=== PATIENT | female | born 1950 | race Caucasian/White ===

== ENCOUNTER 2018-05-25 10:51 | Inpatient (IN) | payer OTHER ==
[~2018-05-25] VITALS: Ht 152.4 cm; Wt 113.4 kg
--- NOTE | ~2018-05-25 | CON ---
[facility] [address] [place] [address] CONSULTATION Name: QUYEN LOZANO Room: [address] IN M.R.#: [id number] Admission: 05/25/18 Attend Phys: Kwan Pritchard MD Discharge: Date of : 48 Report #: [id number] THIS REPORT FOR: //name// CC: TRI Pritchard Physician staff DATE OF SERVICE: 05/26/2018 REASON FOR CONSULTATION: I am seeing this patient at the request of Dr. Pritchard for abdominal cellulitis. HISTORY OF PRESENT ILLNESS: This is a 67-year-old woman with a history of morbid obesity. She is visiting from out of town. She has had pain in the left groin beneath her pannus. She has had this for about a week. The pain is sharp, stabbing, "stinging, burning, severe," located in the left lower abdomen. PAST MEDICAL HISTORY: Morbid obesity. PAST SURGICAL HISTORY: She denies any surgery. SOCIAL HISTORY: No tobacco or alcohol use. ALLERGIES: SULFA. MEDICATIONS: She denies home medications. REVIEW OF SYSTEMS: A 12-point review of systems is negative except what is listed above in the HPI. PHYSICAL EXAMINATION: GENERAL: She is awake, alert, in no acute distress. HEENT: Extraocular movements are intact. Sclerae without icterus. NECK: Supple. CARDIOVASCULAR: Regular rate and rhythm. CHEST: Fair movement bilaterally. ABDOMEN: Soft, obese. In the left lower quadrant beneath her pannus, she has an approximately 30 x 30 cm area of maceration. There is some warmth. There is no fluctuance. EXTREMITIES: Without clubbing or cyanosis. NEUROLOGIC: Grossly intact. SKIN: Without rash or jaundice. ASSESSMENT AND PLAN: A 67-year-old woman with abdominal wall cellulitis, sepsis. CT scan was performed and this did not demonstrate any abscess. I think this could be treated with IV antibiotics. [place] [address] CONSULTATION Name: QUYEN LOZANO Room: [address] IN [facility].#: [id number] Admission: 05/25/18 Attend Phys: Kwan Pritchard MD Discharge: Date of : 48 Report #: [id number] care to help the maceration of the skin in the pannus. This will do the most to help this heal. We will follow along with you. Thank you for asking me to take part in the care of this patient. By: [id number] Olivera MD /zaira
[2018-05-25 11:00] VITALS: BP 196/78
[2018-05-25 11:46] LABS: ABSOLUTE LYMPHOCYTES 0.9 thou/uL (0.8-5.3); ABSOLUTE MONOCYTES 1.1 thou/uL (0.0-1.2); ABSOLUTE NEUTROPHILS 6.8 thou/uL (1.6-8.1); BASOPHILS 0.3 %; HEMATOCRIT 41.3 % (37.0-47.0); HEMOGLOBIN 13.9 gm/dL (12.0-15.0); LYMPHOCYTES 10.1 %; MCH 28.4 pg (26.0-34.0); MCHC 33.7 g/dL (28.0-37.0); MCV 84.4 fL (80.0-100.0); MONOCYTES 12.5 %; MPV 8.3 fl. (7.2-11.1); NUCLEATED RBCS 0 /100WBC; PLATELET COUNT* 275 thou/uL (150-400); POLYS 77.1 %; RBC 4.89 mil/uL (4.20-5.00); RDW-CV 14.3 % (10.5-14.5); WBC 8.8 thou/uL (4.0-11.0)
[2018-05-25 11:55] LABS: ANION GAP 11 mmol/L (7-16); BUN 37 mg/dL (7-18); CALCIUM 8.7 mg/dL (8.5-10.1); CHLORIDE 101 mmol/L (98-107); CO2 26 mmol/L (21-32); CREATININE 1.5 mg/dL (0.6-1.3); GLUCOSE 172 mg/dL (70-99); POTASSIUM 3.5 mmol/L (3.5-5.1); SODIUM 138 mmol/L (136-145)
[2018-05-25 12:05] LABS: ALKALINE PHOSPHATASE 87 U/L (46-116); SGOT 80 U/L (15-37); SGPT 85 U/L (30-65); TOTAL BILIRUBIN 0.5 mg/dL (<0.1-1.0); TOTAL PROTEIN 7.6 g/dL (6.4-8.2); TROPONIN-I LEVEL <0.06 ng/mL (<0.06)
[2018-05-25 12:14] LABS: URINE BILIRUBIN NEGATIVE (Negative); URINE BLOOD 2+ (Negative); URINE CLARITY CLEAR; URINE COLOR YELLOW; URINE GLUCOSE-RANDOM NEGATIVE (Negative); URINE KETONES NEGATIVE (Negative); URINE PROTEIN 1+ (Negative); URINE SPECIFIC GRAVITY 1.025 (1.005-1.030)
[2018-05-25 12:15] LABS: URINE LEUKOCYTES-REFLEX 2+ (Negative); URINE NITRITE-REFLEX POSITIVE (Negative)
[2018-05-25 12:20] LABS: SQUAMOUS 0-3 Few /LPF (0-3)
[2018-05-25 12:21] LABS: BACTERIA-REFLEX >30 Many /HPF (None Seen); CASTS None Seen /LPF (None Seen); CRYSTALS None Seen /LPF (None Seen); MUCUS None Seen strn/LPF (None Seen); URINE RBC 3-10 Few /HPF (0-2); URINE WBC-REFLEX >25 Many /HPF (0-5)
--- NOTE | 2018-05-25 14:06 | NUR ---
CANDIDO NOTIFIED UPON PT RETURN FROM CT. PT CONNECTED TO BP MONOITOR SHE WAS PRIOR TO GOING TO CT
[2018-05-25 14:20] VITALS: BP 187/76
--- NOTE | 2018-05-25 14:33 | NUR ---
PATIENT ARRIVED ON UNIT FROM ER AT 1433. COMPLETED ADMISSION ASSESSMENT AND HISTORY. EDUCATED PATIENT ON ROOM, CALL LIGHT, AND FALL RISKS. PATIENT VERBALIZED UNDERSTANDING. CALL LIGHT WITHIN REACH. WILL CONTINUE TO MONITOR.
[2018-05-25 16:00] VITALS: BP 196/69
[2018-05-25 17:47] VITALS: BP 161/54
--- NOTE | 2018-05-25 17:52 | NUR ---
PATIENT REMAINED ALERT AND ORIENTED X'S 4. VITAL SIGNS AND SPO2 STABLE. IV CLEAN, FLUIDS INFUSING. COMPLETED WOUND PICUTRES, IN CHART. PATIENT TOLERATED DIET, NO NAUSEA AND VOMITING. COMPLETED HOURLY ROUNDING. CALL LIGHT WITHIN REACH. WILL CONTINUE TO MONITOR.
[2018-05-25 20:00] VITALS: BP 148/56
[2018-05-25] MEDS ORDERED: OMEPRAZOLE 20 M20 M1 PO (21:33)
[2018-05-26] VITALS: BP 116/40
[2018-05-26 04:00] VITALS: BP 169/68
--- NOTE | 2018-05-26 05:02 | NUR ---
ASSUMED PT CARE AT 1930. ASSESSMENT COMPLETED CHARTED. UP AD CATRACHITO. ABLE TO MAKE NEEDS KNOWN. C/O PAIN TO PANNUS AREA WHEN CLEANING. AREA RED AND EVISCERATED. PT RESTING IN BED AT THIS TIME. WILL CONTINUE TO MONITOR.
[2018-05-26 05:11] LABS: HEMATOCRIT 37.8 % (37.0-47.0); HEMOGLOBIN 12.7 gm/dL (12.0-15.0); MCH 28.7 pg (26.0-34.0); MCHC 33.6 g/dL (28.0-37.0); MCV 85.5 fL (80.0-100.0); MPV 8.6 fl. (7.2-11.1); RBC 4.42 mil/uL (4.20-5.00); RDW-CV 14.7 % (10.5-14.5); WBC 7.5 thou/uL (4.0-11.0)
[2018-05-26 05:44] LABS: ALBUMIN 2.6 g/dL (3.4-5.0); CALCIUM 7.7 mg/dL (8.5-10.1); CREATININE 1.2 mg/dL (0.6-1.3); POTASSIUM 3.4 mmol/L (3.5-5.1); TOTAL BILIRUBIN 0.5 mg/dL (<0.1-1.0); TOTAL PROTEIN 6.1 g/dL (6.4-8.2)
[2018-05-26 08:45] VITALS: BP 162/72
[2018-05-26 12:20] VITALS: BP 132/57
[2018-05-26 16:00] VITALS: BP 160/76
--- NOTE | 2018-05-26 16:12 | NUR ---
PATIENT REMAINED ALERT AND ORIENTED X'S 4. VITAL SIGNS AND SPO2 STABLE. IV CLEAN, FLUIDS INFUSING. TOLERATED DIET, NO NAUSEA AND VOMITING. HAD A BOUT OF DIARRHEA, GAVE IMMODIUM, DIARRHEA SUBSIDED. CLEANED WOUNDS UNDER BREAST AND GROIN AREA AND DRESSED THEM WITH NYSTATIN POWDER AND INTERDRY. PATIENT HAS DENIED PAIN THROUGHOUT SHIFT. COMPLETED HOURLY ROUNDING. CALL LIGHT WITHIN REACH. WILL CONTINUE TO MONITOR.
[2018-05-26 20:00] VITALS: BP 171/64
[2018-05-27] VITALS: BP 162/66
--- NOTE | 2018-05-27 06:28 | NUR ---
Alert and oriented x 4. She is up independently to the bathroom. Lungs sound diminished in lower lobes she has a cough. Intradry dressing applied to lower abdomianl folds. He skin is escoriated and bleeding also nysattin powder is being used it has helped. She has slept well this shift.
[2018-05-27 07:45] VITALS: BP 157/67
--- NOTE | 2018-05-27 11:13 | EKG ---
[place] [address] ELECTROCARDIOGRAM REPORT Name: QUYEN LOZANO Room: [address] ADM IN [facility].#: [id number] Admission: 05/25/18 Attend Phys: wKan Pritchard MD Discharge: Date of : 48 Report #: [id number] THIS REPORT FOR: //name// [facility] ED Test Date: 2018-05-25 Test Time: 11:28:18 Pat Name: QUYEN LOZANO Department: Room: [facility] Gender: F Broadcast Maintenance Technician: Luiz DUTTON : 1950 Requested By: Brianda Lim Order Number: [id number] : Trevor Choudhary Measurements Intervals [place] Rate: 82 P: 36 CA: 163 QRS: -7 QRSD: 106 T: QT: 395 QTc: 462 Interpretive Statements Sinus rhythm Borderline repolarization abnormality No previous ECG available for comparison Electronically Signed On 05-27-2018 11:13:31 CRTS by Trevor Choudhary [email or web address] <ELECTRONICALLY SIGNED> By: Trevor Choudhary MD, [facility] 05/27/18 1113 D: [id number] Trevor Choudhary MD, [facility]ACC /EPI
--- NOTE | 2018-05-27 12:19 | NUR ---
Pt out of room when CM went to assess, will f/u later
[2018-05-27 13:09] LABS: CALCIUM 7.9 mg/dL (8.5-10.1); CREATININE 0.8 mg/dL (0.6-1.3); MAGNESIUM 1.9 mg/dL (1.8-2.4); POTASSIUM 3.4 mmol/L (3.5-5.1)
[2018-05-27 15:43] VITALS: BP 163/73
--- NOTE | 2018-05-27 18:51 | NUR ---
ALERT AND OREINTED X4. UP AD CATRACHITO IN ROOM. IV IS PATENT AND INFUSING ANTIBIOTIC AT THIS TIME. TOLERATING DIET. DENIES NEED FOR PAIN MEDICATION. NAUSEA BEING MANAGED WITH IV NAUSEA MEDICATION. VSS ON ROOM AIR. HOURLY ROUNDS HAVE BEEN MAINTAINED THROUGHOUT SHIFT. CALL LIGHT IS WITHIN REACH. NURSING WILL CONTINUE TO MONITOR.
[2018-05-27 22:07] LABS: GLYCOHEMOGLOBIN (HGB A1C) 6.6 % (4.8-5.6)
[2018-05-28] VITALS: BP 142/69
--- NOTE | 2018-05-28 00:20 | NUR ---
ASSUMED CARE OF PT AT 1900. PT IS A&O X 4 AND ABLE TO VOICE ALL NEEDS. PT DENIES PAIN. PT UP AD CATRACHITO WITH STEADY GAIT. HOURLY ROUNDING FOR SAFETY. REFER TO CHARTING FOR DETAILS. CLWR.
[2018-05-28 04:00] VITALS: BP 133/52
--- NOTE | 2018-05-28 06:19 | NUR ---
PT SLEPT ON AND OFF T/O THIS SHIFT AND REPORTS THAT SHE IS FEELING "MUCH BETTER" TODAY. VSS. NO NEW CONCERNS AT THIS TIME. CLWR
[2018-05-28 06:39] LABS: HEMATOCRIT 37.8 % (37.0-47.0); HEMOGLOBIN 12.4 gm/dL (12.0-15.0); MCH 27.8 pg (26.0-34.0); MCHC 32.9 g/dL (28.0-37.0); MCV 84.6 fL (80.0-100.0); MPV 7.9 fl. (7.2-11.1); RBC 4.47 mil/uL (4.20-5.00); RDW-CV 14.6 % (10.5-14.5); WBC 7.1 thou/uL (4.0-11.0)
[2018-05-28 06:54] LABS: ALBUMIN 2.6 g/dL (3.4-5.0); CALCIUM 8.4 mg/dL (8.5-10.1); MAGNESIUM 1.9 mg/dL (1.8-2.4); POTASSIUM 3.9 mmol/L (3.5-5.1); TOTAL BILIRUBIN 0.6 mg/dL (<0.1-1.0); TOTAL PROTEIN 7.1 g/dL (6.4-8.2)
[2018-05-28 08:00] VITALS: BP 154/77
[2018-05-28 10:00] VITALS: BP 179/70
--- NOTE | 2018-05-28 10:00 | NUR ---
PT ALERT AND ORIENTED. TELE TRACKING NSRAND ALL VSS ON ROOM AIR. DENIES CP, SOA. ABDOMINAL FOLDS WITH INTERDRY DRESSING INTACT. EDUCATED ON SAFETY AND PLAN OF CARE. PLEASE SEE ASSESSMENT FOR ADDITIONAL INFORMATION. PT TO MED SURG AT APPROX 1000, REPORT GIVEN TO AIDEN PEÑA.
--- NOTE | 2018-05-28 11:09 | NUR ---
RECEIVED REPORT FROM ANITA ON TELE AND ASSUMED CARE OF PT @ 1000.PT IS A/O X4,VSS.THIS NURSE ASSESSED PT AND PREVIOUS NURSE CHARTING AND AGREES.IV PATENT AND SALINE LOCKED.IV ANTIBIOTICS GIVEN.ISOLATION MAINTAINED FOR RULE OUT CDIFF.NO C/O PAIN.PT IS CALM AND COOPERATIVE.UP AD CATRACHITO IN ROOM.PT LEFT RESTING IN BED WITH CALL LIGHT WITHIN REACH.WILL CONTINUE TO MONITOR.
--- NOTE | 2018-05-28 13:01 | NUR ---
Nutrition: RD assessed pt d/t high BMI. Pt is admitted with cellulitis of panis, sees wound care. Wt: 250#. Albumin 2.6, prealb 11.7. Regular diet ordered. RD ordered Beneprotien packets for wound healing with all meals. Pt is currently in ISOLATION for R/O c. diff. Mild risk.
--- NOTE | 2018-05-28 14:11 | NUR ---
PT.WALKING IN ROOM. GAIT STEADY. SHE IS UP HERE FROM [place],VISITING HER DAUGHTER AND FAMILY FOR THE HOLIDAYS. SHE FLEW HERE. HAS AN OPEN TICKET SO CAN [place] TO [place]EN SHE WANTS TO. SHE IS INDEPENDENT. NO USE OF DME. SHE SAID HER DAUGHTER AND FAMILY HAS TO WORK TONIGHT AND TOMORROW DAY. SHE SAID SHE WOULD NOT HAVE A RIDE OR HAVE ANYONE TO BE WITH HER AT HOME UNTIL TOMORROW AROUND 4 PM. PASSED ALONG TO NURSE.
[2018-05-28 17:02] VITALS: BP 150/72
--- NOTE | 2018-05-28 17:04 | NUR ---
VSS.PT REMAINS ON ROOM AIR.IV PATENT AND SALINE LOCKED.PT PROGRESSING TOWARDS GOALS.NO C/O PAIN.PT HAS C/O COUGH-TESSALON PEARLS GIVEN.ISOLATION MAINTAINED FOR PENDING CDIFF.PT INFORMED OF PLAN OF CARE AND COMMUNICATES UNDERSTANDING.HOURLY ROUNDING COMPLETED FOR PT SAFETY.CALL LIGHT AND FALL PRECAUTIONS IN PLACE.WILL CONTINUE TO MONITOR FOR DURATION OF SHIFT.
[2018-05-28 20:00] VITALS: BP 118/73
--- NOTE | 2018-05-29 04:44 | NUR ---
PT A&Ox4. UP AD CATRACHITO. IV IN L WRIST PATENT, INFUSING. CELLULITIS SPOTS CLEANED. DENIED PAIN DURING SHIFT. PT ON ISOLATION PRECAUTIONS DUE TO PENDING C-DIFF. PLANS ON DISCHARGING TODAY. HOURLY ROUNDING COMPLETE. CALL LIGHT WITHIN REACH. WILL CONTINUE TO MONITOR.
[2018-05-29 05:11] LABS: HEMATOCRIT 35.3 % (37.0-47.0); HEMOGLOBIN 11.7 gm/dL (12.0-15.0); MCH 27.8 pg (26.0-34.0); MCHC 33.2 g/dL (28.0-37.0); MCV 83.7 fL (80.0-100.0); RBC 4.21 mil/uL (4.20-5.00); RDW-CV 14.2 % (10.5-14.5)
[2018-05-29 05:25] LABS: ALBUMIN 2.3 g/dL (3.4-5.0); CALCIUM 8.2 mg/dL (8.5-10.1); CREATININE 0.8 mg/dL (0.6-1.3); MAGNESIUM 1.8 mg/dL (1.8-2.4); POTASSIUM 3.3 mmol/L (3.5-5.1); TOTAL BILIRUBIN 0.4 mg/dL (<0.1-1.0); TOTAL PROTEIN 6.7 g/dL (6.4-8.2)
[2018-05-29 11:17] VITALS: BP 181/62
[2018-05-29 12:00] VITALS: BP 141/64
[2018-05-29] MEDS ORDERED: METOPROLOL ER-1 EACH PO (15:42)
[2018-05-29] MEDS ORDERED: AUGMENTIN 500-1 EACH PO (15:44)
[2018-05-29] MEDS ORDERED: NORVASC10 MG PO (15:45)
[2018-05-29] MEDS ORDERED: LISINOPRIL5 MG PO (15:46)
[2018-05-29] MEDS ORDERED: NYAMYC15 GM TOP (15:47)
[2018-05-29] MEDS ORDERED: LORATIDINE 10 M10 M1 PO (15:50)
[2018-05-29 15:52] VITALS: BP 141/64
--- NOTE | 2018-05-29 17:11 | NUR ---
PT ALERT AND ORIENTED X 4. IV PATENT. DENIES NAUSEA AND PAIN. PT RECEIVED POTASSIUM AND MAGNESIUM PER ELECTROLYTE PROTOCOL. WOUND AREA CLEANSED PER ORDER AND NYSTATIN POWDER APPLIED. IV REMOVED DUE TO INFILTRATION. PT RECEIVED DISCHARGE INSTRUCTIONS AND PRESCRIPTIONS. PT LEFT UNIT @ 1615 TO LEAVE WITH DAUGHTER PER PRIVATE CAR.
[2018-05-29 17:16] VITALS: BP 141/64
== END 2018-05-29 16:15 | disposition home or self-care (01) | DRG 871 ==
LOC: M.ERS 10:51 → M.TBA-ER 13:33 → M.ERS 13:33 → M.2W 13:49 → M.TBA-ER 13:49 → M.ORTHSURG 13:49 → M.2W 14:25 → M.ORTHSURG 05-28 10:15
PROVIDERS: Family Medicine; Nurse Practitioner Family
DX: A41.9 Sepsis, unspecified organism (principal); E43 Unspecified severe protein-calorie malnutrition; J18.0 Bronchopneumonia, unspecified organism; L03.311 Cellulitis of abdominal wall; N17.9 Acute kidney failure, unspecified; N39.0 Urinary tract infection, site not specified; Z68.42 Body mass index [BMI] 45.0-49.9, adult; R65.20 Severe sepsis without septic shock; E66.01 Morbid (severe) obesity due to excess calories; R73.9 Hyperglycemia, unspecified; E87.6 Hypokalemia; I10 Essential (primary) hypertension; Z23 Encounter for immunization; Z88.2 Allergy status to sulfonamides; Z79.899 Other long term (current) drug therapy

== ENCOUNTER 2021-06-04 12:47 | Emergency (ER) | payer OTHER ==
[~2021-06-04] VITALS: Ht 152.4 cm; Wt 102.1 kg
[~2021-06-04 12:47] MED LIST: AUGMENTIN 500-1 EACH PO; LISINOPRIL5 MG PO; LORATIDINE 10 M10 M1 PO; METOPROLOL ER-1 EACH PO; NORVASC10 MG PO; NYAMYC15 GM TOP; OMEPRAZOLE 20 M20 M1 PO
[2021-06-04] MEDS ORDERED: NEXIUM20 MG PO (13:26)
[2021-06-04 15:02] LABS: URINE BILIRUBIN NEGATIVE (Negative); URINE BLOOD 2+ (Negative); URINE COLOR YELLOW; URINE GLUCOSE-RANDOM NEGATIVE (Negative); URINE KETONES NEGATIVE (Negative); URINE LEUKOCYTES-REFLEX 1+ (Negative); URINE NITRITE-REFLEX NEGATIVE (Negative); URINE PROTEIN 3+ (Negative); URINE SPECIFIC GRAVITY 1.025 (1.005-1.030); URINE UROBILINOGEN 0.2 E.U./dl (0.2-1.0)
[2021-06-04 15:03] LABS: URINE CLARITY CLOUDY
[2021-06-04 15:13] LABS: BACTERIA-REFLEX >30 Many /HPF (None Seen); CASTS None Seen /LPF (None Seen); CRYSTALS None Seen /LPF (None Seen); SQUAMOUS 4-10 Moderate /LPF (0-3); URINE RBC >20 Many /HPF (0-2); URINE WBC-REFLEX >25 Many /HPF (0-5)
[2021-06-04 15:15] LABS: ABSOLUTE BASOPHILS 0.1 thou/uL (0.0-0.2); ABSOLUTE EOSINOPHILS 0.1 thou/uL (0.0-0.7); ABSOLUTE LYMPHOCYTES 1.7 thou/uL (0.8-5.3); ABSOLUTE MONOCYTES 0.6 thou/uL (0.0-1.2); ABSOLUTE NEUTROPHILS 8.4 thou/uL (1.6-8.1); BASOPHILS 0.7 %; EOSINOPHILS 0.6 %; HEMATOCRIT 43.1 % (37.0-47.0); HEMOGLOBIN 14.8 gm/dL (12.0-15.0); LYMPHOCYTES 16.1 %; MCH 28.6 pg (26.0-34.0); MCHC 34.3 g/dL (28.0-37.0); MCV 83.4 fL (80.0-100.0); MONOCYTES 5.4 %; MPV 7.9 fl. (7.2-11.1); NUCLEATED RBCS 0 /100WBC; PLATELET COUNT* 407 thou/uL (150-400); POLYS 77.2 %; RBC 5.17 mil/uL (4.20-5.00); RDW-CV 13.9 % (10.5-14.5); WBC 10.8 thou/uL (4.0-11.0)
--- NOTE | 2021-06-04 15:19 | EKG ---
[place] [address] ELECTROCARDIOGRAM REPORT Name: QUYEN LOZANO Room: [facility]#: [id number] Admission: 06/04/21 Attend Phys: Discharge: Date of : 48 Date of Service: 06/04/21 1458 Report #: [id number] THIS REPORT FOR: //name// [facility] ED Test Date: 2021-06-04 Test Time: 14:58:11 Pat Name: QUYEN LOZANO Department: Room: Gender: F Consulting Senior Practice Director: : 1950 Requested By: Brianda Lim Order Number: [id number] MD: Trevor Choudhary Measurements Intervals [place] Rate: 67 P: 9 GA: 170 QRS: -8 QRSD: 104 T: 40 QT: 547 QTc: 578 Interpretive Statements Sinus rhythm LVH with secondary repolarization abnormality Prolonged QT interval Compared to ECG 05/25/2018 11:28:18 Left ventricular hypertrophy now present Prolonged QT interval now present Electronically Signed On 06-04-2021 15:19:25 GLASS OR MIRROR INSPECTOR by Trevor Choudhary [email or web address] <ELECTRONICALLY SIGNED> By: Trevor Choudhary MD, [facility] 06/04/21 1519 1458 1458 Trevor Choudhary MD, [facility] /EPI
[2021-06-04 15:20] LABS: CALCIUM 8.8 mg/dL (8.5-10.1); POTASSIUM 3.4 mmol/L (3.5-5.1)
[2021-06-04 15:21] LABS: INFLUENZA A ANTIGEN Negative (Negative); INFLUENZA B ANTIGEN Negative (Negative)
[2021-06-04 15:24] LABS: ALBUMIN 3.3 g/dL (3.4-5.0); TOTAL BILIRUBIN 0.7 mg/dL (<0.1-1.0); TOTAL PROTEIN 7.8 g/dL (6.4-8.2)
[2021-06-04] MEDS ORDERED: PHENERGAN 25 MG25 M1 PO (16:26)
[2021-06-04] MEDS ORDERED: CEPHALEXIN500 MG PO (16:30)
[2021-06-04] MEDS ORDERED: NORVASC5 MG PO (16:30)
[2021-06-04 17:03] VITALS: BP 184/65
== END 2021-06-04 17:03 | disposition home or self-care (01) ==
LOC: M.ERS 12:47
PROVIDERS: Nurse Practitioner Family
DX: A08.4 Viral intestinal infection, unspecified (principal); Z20.822 Contact with and (suspected) exposure to COVID-19; K76.0 Fatty (change of) liver, not elsewhere classified; E86.0 Dehydration; N39.0 Urinary tract infection, site not specified; R11.2 Nausea with vomiting, unspecified; R19.7 Diarrhea, unspecified; R10.9 Unspecified abdominal pain; R51.9 Headache, unspecified; E66.9 Obesity, unspecified; I10 Essential (primary) hypertension; E11.9 Type 2 diabetes mellitus without complications; Z68.41 Body mass index [BMI] 40.0-44.9, adult; Z79.899 Other long term (current) drug therapy; Z88.2 Allergy status to sulfonamides